=== PATIENT | female | born 1955 | race Caucasian/White ===

== ENCOUNTER → 2021-02-18 13:52 | Outpatient (CLI) | payer BC, SELFPAY ==
--- NOTE | 2021-02-18 14:00 | XR_ITS ---
PROCEDURE: XR KUB CLINICAL INDICATION: ABD BLOATING COMPARISON: No exams were available for comparison FINDINGS: There is a mild amount of retained colonic feces. No evidence bowel obstruction. Degenerative changes are present in lumbar IMPRESSION: Mild constipation Dictated by: Brian Carmen MD 02/18/2021 15:03 Brian Carmen MD in [facility] 02/18/2021 15:03
[2021-02-21 07:28] LABS: H. pylori Breath Test Negative (Negative)
== END ==
PROVIDERS: PCP Physician Assistant; Visit Provider Nurse Practitioner
DX: R14.0 Abdominal distension (gaseous) (principal)
CPT/HCPCS: 74018; 83013

== ENCOUNTER → 2022-10-07 09:03 | Outpatient (CLI) | payer BC, SELFPAY ==
--- NOTE | 2022-10-07 09:08 | MM_ITS ---
PROCEDURE INFORMATION: Exam: MG Bilateral Screening 3D Mammography Exam date and time: 10/07/2022 9:13 AM Age: 67 years old Clinical indication: Screening examination. Her sister had breast cancer in her 50s. TECHNIQUE: Imaging protocol: Bilateral Screening tomosynthesis and 2D mammography including computer-aided detection (CAD) when performed. COMPARISON: 1. MG Screening-Bilateral Mammography 05/21/2021 10:39 AM 2. MG Screening-Bilateral Mammography 02/19/2019 3:28 PM 3. MG MAMMO SCREENING DIGITAL BILAT 01/31/2015 10:05 AM FINDINGS: MAMMOGRAPHY: Breast composition: There are scattered areas of fibroglandular density. Mass: None. Architectural distortion: None. Calcifications: No suspicious calcifications. Asymmetric density: None. Skin thickening: None. Axillary adenopathy: None. IMPRESSION: No mammographic evidence of malignancy. Annual screening is recommended unless otherwise clinically indicated. ASSESSMENT: BI-RADS Category 1: Negative
--- NOTE | 2022-10-07 09:08 | XR_ITS ---
FINAL REPORT TECHNIQUE: Bone densitometry calculations of the lumbar spine and left hip were obtained. CLINICAL HISTORY: post menopausal FINDINGS: DEXA BONE DENSITY AXIAL SKELETON Using L1-4, the bone mineral density of the spine is 1.212 g/cm2, corresponding to T-score of 1.5 with a Z-score of 3.5. Using the left hip, the bone mineral density of the total hip is 1.003 g/cm2, corresponding to a T-score of 0.5 with a Z-score of 1.9. NOTE: T-score: Standard deviation compared with peak bone mass of young adult mean. *Following the recommendations of the International Society of Bone densitometry, classification of hip BMD is based on the lower of two T-scores; total hip or femoral neck. IMPRESSION: Normal bone mineral density of the lumbar spine and left hip. Reviewed, Interpreted and Dictated by Loree Mckenzie MD Transcribed by Brenda Adhikari Authenticated and [facility]
== END ==
PROVIDERS: PCP Physician Assistant; Visit Provider Nurse Practitioner Family
DX: Z12.31 Encounter for screening mammogram for malignant neoplasm of breast (principal); Z78.0 Asymptomatic menopausal state; M85.80 Other specified disorders of bone density and structure, unspecified site
CPT/HCPCS: 77063; 77067; 77080

== ENCOUNTER 2023-10-10 10:38 | Outpatient (CLI) | payer BC, SELFPAY ==
--- NOTE | 2023-10-10 10:47 | MM_ITS ---
PROCEDURE INFORMATION: Exam: MG Bilateral Screening 3D Mammography Exam date and time: 10/10/2023 10:41 AM Age: 68 years old Clinical indication: Screening examination TECHNIQUE: Imaging protocol: Bilateral Screening tomosynthesis and 2D mammography including computer-aided detection (CAD) when performed. COMPARISON: 1. MG MM DIG SCREENING MAMM BI W/CAD 10/07/2022 9:13 AM 2. MG Screening-Bilateral Mammography 05/21/2021 10:39 AM FINDINGS: MAMMOGRAPHY: Breast composition: There are scattered areas of fibroglandular density. Mass: None. Architectural distortion: None. Calcifications: No suspicious calcifications. Asymmetric density: None. Skin thickening: None. Axillary adenopathy: None. IMPRESSION: No mammographic evidence of malignancy. Annual screening is recommended unless otherwise clinically indicated. ASSESSMENT: BI-RADS Category 1: Negative
== END 2023-10-10 23:59 ==
LOC: RAD 10:38
PROVIDERS: PCP Nurse Practitioner Family; Visit Provider Nurse Practitioner Family
DX: Z12.31 Encounter for screening mammogram for malignant neoplasm of breast (principal)
CPT/HCPCS: 77063; 77067

== ENCOUNTER 2024-10-10 13:38 | Outpatient (CLI) | payer BC, SELFPAY ==
--- NOTE | 2024-10-10 13:40 | MM_ITS ---
PROCEDURE INFORMATION: Exam: MG Bilateral Screening 3D Mammography Exam date and time: 10/10/2024 1:44 PM Age: 69 years old Clinical indication: Screening examination. Her sister had breast cancer in her 50s. TECHNIQUE: Imaging protocol: Bilateral Screening tomosynthesis and 2D mammography including computer-aided detection (CAD) when performed. COMPARISON: 1. MG MM DIG SCREENING MAMM BI W/CAD 10/10/2023 10:41 AM 2. MG MM DIG SCREENING MAMM BI W/CAD 10/07/2022 9:13 AM 3. MG Screening-Bilateral Mammography 05/21/2021 10:39 AM 4. MG Screening-Bilateral Mammography 02/19/2019 3:28 PM FINDINGS: MAMMOGRAPHY: Breast composition: There are scattered areas of fibroglandular density. Mass: None. Architectural distortion: None. Calcifications: No suspicious calcifications. Asymmetric density: None. Skin thickening: None. Axillary adenopathy: None. IMPRESSION: No mammographic evidence of malignancy. Annual screening is recommended unless otherwise clinically indicated. ASSESSMENT: BI-RADS Category 1: Negative.
== END 2024-10-10 23:59 | disposition home or self-care (01) ==
LOC: RAD 13:38
PROVIDERS: PCP Nurse Practitioner Family; Visit Provider Nurse Practitioner Family
DX: Z12.31 Encounter for screening mammogram for malignant neoplasm of breast (principal)
CPT/HCPCS: 77063; 77067